=== PATIENT | female | born 1945 | race Caucasian/White ===

== ENCOUNTER 2020-01-25 11:58 | Inpatient (IN) | payer MEDICARE, BC ==
[2020-01-25] VITALS (7 sets, daily range): BP systolic 132–166; BP diastolic 70–85
[~2020-01-25] VITALS: Ht 172.7 cm; Wt 73.0 kg
[~2020-01-25 11:58] MED LIST: ASPI-612 PO; DULO-31 PO; LEVO88TA2 PO; MULT-687 PO; ZOLP12.543 PO
[2020-01-25] MEDS ORDERED: cefazolin/dext.iso 2gm/100ml 100 ML IV ONE (12:17)
[2020-01-25] MEDS ORDERED: vancomycin 1,500 MG in NS 300ml IV soln IV ONE (12:17)
[2020-01-25] MEDS ORDERED: famotidine 20mg tablet PO ONE (12:17)
[2020-01-25] MEDS ORDERED: ringers solution, lacted 1,000 ML IV SCH ×2 (12:17→15:14)
[2020-01-25] MEDS ORDERED: ceFAZolin 2gm in dextrose, iso 50 ML IV ONE (12:20)
[2020-01-25] MEDS ORDERED: ceFAZolin 2gm in dextrose, iso 100 ML IV ONE (12:20)
[2020-01-25] MEDS ORDERED: TURMERIC (13:00)
[2020-01-25] MEDS ORDERED: meperidine/PF 25mg/ml syringe IV PRN ×3 (15:15)
[2020-01-25] MEDS ORDERED: morphine 4 MG/ML inj SYRINge IV PRN (15:15)
[2020-01-25] MEDS ORDERED: proCHLORperazine 10 MG/2 ml inj IV PRN (15:15)
[2020-01-25] MEDS ORDERED: ondansetron/PF 4mg/2ml inj IV PRN (15:15)
[2020-01-25] MEDS ORDERED: morphine 2 MG/ML inj. syringe IV PRN (15:15)
[2020-01-25] MEDS ORDERED: cloNIDine hcl/PF 100mcg/ml inj ONE (16:06)
[2020-01-25] MEDS ORDERED: fentaNYL/PF 50MCG/1 ML 2ML syringe ONE (16:08)
[2020-01-25] MEDS ORDERED: MIDAZolam 5mg/5ml vial ONE (16:08)
[2020-01-25] MEDS ORDERED: ROPIVAcaine 0.5% (5mg/ml) 30ml vial ONE (16:10)
[2020-01-25] MEDS ORDERED: bacitracin 15gm ointment TP ONE (16:11)
[2020-01-25] MEDS ORDERED: BUPIVAcaine/PF 2.5 mg/ml (0.25%) 30ml vial ONE (16:11)
[2020-01-25] MEDS ORDERED: LIDOcaine 1%/PF 5ML 10 MG/ML VIAL ONE (16:12)
[2020-01-25] MEDS ORDERED: sevoflurane 250ml liquid IH ONE (16:12)
[2020-01-25] MEDS ORDERED: BUPIVAcaine/PF 7.5mg/ml (0.75%) 10ml vial ONE (16:24)
[2020-01-25] MEDS ORDERED: propofol inj 20 ML IV ONE (16:24)
[2020-01-25] MEDS ORDERED: dexamethasone sod phosphate 4mg/ml inj. ONE (16:38)
--- NOTE | 2020-01-25 16:38 | NUR ---
Received from OR via , accompanied by Anesthesiologist DR NELSON and report given by Anesthesiolgist. AWAKENS TO VOICE. VITALS STABLE. DRESSING/SPLINT DI. WALKING BOOT ON. MANUELITO PAIN.
[2020-01-25] MEDS ORDERED: ondansetron/PF 4mg/2ml inj ONE (16:56)
--- NOTE | 2020-01-25 19:02 | NUR ---
AWAKE AND ORIENTED. VITALS STABLE. DRESSING DI. MANUELITO PAIN. HOME WITH HER DAUGHTER AT THIS TIME.
== END 2020-01-25 19:02 | disposition home or self-care (01) | DRG 469 ==
LOC: PAS IN 11:58 → EDSTATUS 15:00
PROVIDERS: ADMIT Podiatrist Foot & Ankle Surgery; ATTEND Podiatrist Foot & Ankle Surgery
PROC: 0SPG0JZ Removal of Synthetic Substitute from Left Ankle Joint, Open Approach (ICD-10-PCS; 2020-01-25)
PROC: 3E0T3BZ Introduction of Anesthetic Agent into Peripheral Nerves and Plexi, Percutaneous Approach (ICD-10-PCS; 2020-01-25)
PROC: 0SRG0JZ Replacement of Left Ankle Joint with Synthetic Substitute, Open Approach (ICD-10-PCS; principal; 2020-01-25 16:12)
DX: T84.89XA Other specified complication of internal orthopedic prosthetic devices, implants and grafts, initial encounter (principal); M19.072 Primary osteoarthritis, left ankle and foot
CPT/HCPCS: 73600; 76000; 82948; J0735; J1100; J2250; J2405; J2704; J2795; J3010; J3370; J3490; J7040; J7120

== ENCOUNTER 2022-01-15 06:35 | Day surgery (SDC) | payer MEDICARE, BC ==
[~2022-01-15] VITALS: Ht 172.7 cm; Wt 82.5 kg
[~2022-01-15 06:35] MED LIST changes: +TURMERIC
[2022-01-15 06:45] VITALS: BP 135/79
[2022-01-15] MEDS ORDERED: normal saline 1000ml 1,000 ML IV PRN (07:00)
[2022-01-15] MEDS ORDERED: LOP12.5T PO (07:09)
[2022-01-15] MEDS ORDERED: DULO-31 PO (07:09)
[2022-01-15] MEDS ORDERED: ASCO-139 PO (07:09)
[2022-01-15] MEDS ORDERED: VITA-268 PO (07:09)
[2022-01-15] MEDS ORDERED: ACET-1025 PO (07:09)
[2022-01-15] MEDS ORDERED: CHOL400T57 PO (07:09)
[2022-01-15] MEDS ORDERED: VITA-134 PO (07:09)
[2022-01-15] MEDS ORDERED: OMEG1CAP13 PO (07:09)
[2022-01-15] MEDS ORDERED: CYAN50009 PO (07:09)
[2022-01-15] MEDS ORDERED: LIDO30CR TOP (07:09)
[2022-01-15] MEDS ORDERED: ZOLP12.543 PO (07:09)
[2022-01-15 07:55] LABS: BASOPHILS % (AUTO) 0.8 % (0-1); EOSINOPHILS # (AUTO) 0.1 X10'3 (0-0.9); EOSINOPHILS % (AUTO) 2.5 % (0-6); HEMATOCRIT 32.4 % (35.0-45.0); HEMOGLOBIN 10.9 g/dl (12.0-16.0); LYMPHOCYTES % (AUTO) 23.9 % (21-51); MEAN CORPUSCULAR HEMOGLOBIN 33.3 PG (27.0-31.0); MEAN CORPUSCULAR HGB CONC 33.7 g/dL (33.0-36.5); MEAN PLATELET VOLUME 6.7 FL (7.4-10.4); MONOCYTES # (AUTO) 0.4 X10'3 (0-0.9); MONOCYTES % (AUTO) 9.1 % (2-12); NEUTROPHILS # (AUTO) 2.6 X10'3 (1.8-7.7); NEUTROPHILS % (AUTO) 63.7 % (42-75); PLATELET COUNT 195 X10'3 (140-440); RED BLOOD COUNT 3.27 X10'6 (4.20-5.60); RED CELL DISTRIBUTION WIDTH 13.7 % (11.5-14.5); WHITE BLOOD COUNT 4.1 X10'3 (4.5-11.0)
[2022-01-15] MEDS ORDERED: DESMOPRESSIN IV ONE (08:40)
[2022-01-15] MEDS ORDERED: NORMAL SALINE IV ONE (08:40)
[2022-01-15 09:25] LABS: ALANINE AMINOTRANSFERASE 18 U/L (12-78); ALBUMIN/GLOBULIN RATIO 0.9 (1.1-1.5); ALKALINE PHOSPHATASE 87 IU/L (46-116); ANION GAP 8 (8-16); ASPARTATE AMINO TRANSFERASE 39 U/L (10-37); BILIRUBIN,TOTAL 0.4 MG/DL (0.1-1.0); BLOOD UREA NITROGEN 28 MG/DL (7-18); BUN/CREATININE RATIO 14.9 (6.6-38.0); CALCIUM 8.3 MG/DL (8.5-10.1); CHLORIDE 107 MMOL/L (99-107); CREATININE 1.88 MG/DL (0.40-0.90); GLUCOSE 84 MG/DL (70-104); POTASSIUM 5.6 MMOL/L (3.5-5.1); SODIUM 140 MMOL/L (135-145); TOTAL CARBON DIOXIDE 25.2 MMOL/L (24-32); TOTAL PROTEIN 6.4 G/DL (6.4-8.2); eGFR 26 ML/MIN
[2022-01-15] MEDS ORDERED: LIDOcaine 1%/PF 5ML 10 MG/ML VIAL ONE (09:26)
[2022-01-15] MEDS ORDERED: fentaNYL/PF 50MCG/1 ML 2ML syringe ONE (09:29)
[2022-01-15] MEDS ORDERED: midazolam 1 mg/ML 2ml injection ONE (09:29)
[2022-01-15 09:45] VITALS: BP 157/86
[2022-01-15 09:57] VITALS: BP 181/79
[2022-01-15 10:05] VITALS: BP 162/80
--- NOTE | 2022-01-15 10:05 | NUR ---
Patient returned from procedure. No procedure done due to elevated CR & GFR. Dr. Phillips to come speak with the patient and then the patient can be discharged.
== END 2022-01-15 10:55 | disposition home or self-care (01) ==
LOC: SSTAY O 06:35
PROVIDERS: ATTEND Radiology Vascular & Interventional Radiology
DX: N28.89 Other specified disorders of kidney and ureter (principal); Q60.0 Renal agenesis, unilateral; Z79.899 Other long term (current) drug therapy; Z98.890 Other specified postprocedural states
CPT/HCPCS: 36415; 50200; 77012; 80053; 85025; J2250; J3010; J3490; J7030; 10160; 74150; A4615

== ENCOUNTER 2022-08-18 08:41 | Day surgery (SDC) | payer MEDICARE, BC ==
[~2022-08-18] VITALS: Ht 172.7 cm; Wt 84.0 kg
[2022-08-18] VITALS (14 sets, daily range): BP systolic 116–144; BP diastolic 57–83
[~2022-08-18 08:41] MED LIST changes: +ACET-1025 PO; +ASCO-139 PO; -ASPI-612 PO; +CHOL400T57 PO; +CYAN50009 PO; +LIDO30CR TOP; +LOP12.5T PO; +OMEG-5 PO; +VITA-268 PO; +VITA-288 PO
[2022-08-18] MEDS ORDERED: normal saline 1000ml 1,000 ML IV SCH (09:25)
[2022-08-18 09:30] LABS: BASOPHILS % (AUTO) 1.3 % (0-1); EOSINOPHILS # (AUTO) 0.2 X10'3 (0-0.9); EOSINOPHILS % (AUTO) 4.5 % (0-6); HEMATOCRIT 28.9 % (35.0-45.0); HEMOGLOBIN 9.5 g/dl (12.0-16.0); LYMPHOCYTES # (AUTO) 0.8 X10'3 (1.1-4.8); MEAN CORPUSCULAR HEMOGLOBIN 31.2 PG (27.0-31.0); MEAN CORPUSCULAR HGB CONC 32.8 g/dL (33.0-36.5); MEAN CORPUSCULAR VOLUME 95.2 FL (78-98); MONOCYTES # (AUTO) 0.5 X10'3 (0-0.9); MONOCYTES % (AUTO) 13.4 % (2-12); NEUTROPHILS # (AUTO) 2.3 X10'3 (1.8-7.7); NEUTROPHILS % (AUTO) 59.8 % (42-75); PLATELET COUNT 196 X10'3 (140-440); RED BLOOD COUNT 3.03 X10'6 (4.20-5.60); RED CELL DISTRIBUTION WIDTH 17.2 % (11.5-14.5); WHITE BLOOD COUNT 3.8 X10'3 (4.5-11.0)
[2022-08-18] MEDS ORDERED: AMLO10TA48 PO (09:48)
[2022-08-18] MEDS ORDERED: HYDR-4070 PO (09:48)
[2022-08-18] MEDS ORDERED: PROC-8 PO (09:54)
[2022-08-18] MEDS ORDERED: CYCL50CA3 PO (09:54)
[2022-08-18] MEDS ORDERED: ONDA8TAB13 PO (09:54)
[2022-08-18] MEDS ORDERED: OLAN5TAB5 PO (09:54)
[2022-08-18 10:53] LABS: ANION GAP 5 (8-16); BLOOD UREA NITROGEN 16 MG/DL (7-18); BUN/CREATININE RATIO 3.8 (6.6-38.0); CALCIUM 8.3 MG/DL (8.5-10.1); CHLORIDE 98 MMOL/L (99-107); GLUCOSE 85 MG/DL (70-104); SODIUM 135 MMOL/L (135-145); TOTAL CARBON DIOXIDE 31.9 MMOL/L (24-32); eGFR 10 ML/MIN
[2022-08-18] MEDS ORDERED: LIDOcaine 1% 30ml preserv. free vial ONE (10:59)
[2022-08-18] MEDS ORDERED: fentaNYL/PF 50MCG/1 ML 2ML syringe ONE (11:01)
[2022-08-18] MEDS ORDERED: midazolam 1 mg/ML 2ml injection ONE (11:01)
[2022-08-18] MEDS ORDERED: desmopressin inj. 25 MCG in normal saline 100ml IV soln 100 ML IV ONE (11:20)
[2022-08-18] MEDS ORDERED: gelatin sponge, absorbable (Gelfoam 12-7MM) sponge TP ONE (12:04)
[2022-08-18] MEDS ORDERED: HYDROcodone/acetaminophen 5mg/325mg tablet PO PRN (12:10)
== END 2022-08-18 15:30 | disposition home or self-care (01) ==
LOC: SSTAY O 08:41
PROVIDERS: ATTEND Radiology Vascular & Interventional Radiology
DX: N28.89 Other specified disorders of kidney and ureter (principal); C56.9 Malignant neoplasm of unspecified ovary; Z88.1 Allergy status to other antibiotic agents
CPT/HCPCS: 36415; 50200; 77012; 80048; 85025; 85610; J2250; J3010; J3490; J7030; 32408; 88305; 99152; 99153; A4615

== ENCOUNTER 2022-09-22 08:36 | Day surgery (SDC) | payer MEDICARE, BC ==
[2022-09-22] VITALS (13 sets, daily range): BP systolic 102–148; BP diastolic 51–86
[~2022-09-22] VITALS: Ht 172.7 cm; Wt 81.6 kg
[~2022-09-22 08:36] MED LIST changes: +AMLO10TA48 PO; -ASCO-139 PO; -CHOL400T57 PO; -CYAN50009 PO; +CYCL50CA3 PO; -DULO-31 PO; +HYDR-4070 PO; -MULT-687 PO; +OLAN5TAB5 PO; -OMEG-5 PO; +ONDA8TAB13 PO; +PROC-8 PO; -TURMERIC; -VITA-268 PO; -VITA-288 PO
[2022-09-22] MEDS ORDERED: METO-384 PO (09:12)
[2022-09-22] MEDS ORDERED: ESCI-8 PO (09:12)
[2022-09-22] MEDS ORDERED: normal saline 1000ml 1,000 ML IV PRN (09:15)
[2022-09-22 09:39] LABS: BASOPHILS % (AUTO) 1.2 % (0-1); EOSINOPHILS # (AUTO) 0.1 X10'3 (0-0.9); EOSINOPHILS % (AUTO) 3.3 % (0-6); HEMOGLOBIN 9.8 g/dl (12.0-16.0); LYMPHOCYTES # (AUTO) 0.7 X10'3 (1.1-4.8); LYMPHOCYTES % (AUTO) 20.8 % (21-51); MEAN CORPUSCULAR HEMOGLOBIN 31.8 PG (27.0-31.0); MEAN CORPUSCULAR HGB CONC 32.7 g/dL (33.0-36.5); MEAN PLATELET VOLUME 6.3 FL (7.4-10.4); MONOCYTES # (AUTO) 0.4 X10'3 (0-0.9); MONOCYTES % (AUTO) 12.4 % (2-12); NEUTROPHILS # (AUTO) 2.1 X10'3 (1.8-7.7); NEUTROPHILS % (AUTO) 62.3 % (42-75); PLATELET COUNT 166 X10'3 (140-440); RED BLOOD COUNT 3.09 X10'6 (4.20-5.60); RED CELL DISTRIBUTION WIDTH 16.8 % (11.5-14.5); WHITE BLOOD COUNT 3.4 X10'3 (4.5-11.0)
[2022-09-22 09:47] LABS: ANION GAP 2 (8-16); BLOOD UREA NITROGEN 13 MG/DL (7-18); BUN/CREATININE RATIO 3.4 (10.0-20.0); CALCIUM 8.4 MG/DL (8.5-10.1); CHLORIDE 100 MMOL/L (99-107); CREATININE 3.88 MG/DL (0.40-0.90); GLUCOSE 87 MG/DL (70-104); POTASSIUM 4.6 MMOL/L (3.5-5.1); SODIUM 138 MMOL/L (135-145); TOTAL CARBON DIOXIDE 35.7 MMOL/L (24-32); eGFR 11 ML/MIN
[2022-09-22] MEDS ORDERED: fentaNYL/PF 50MCG/1 ML 2ML syringe ONE (11:18)
[2022-09-22] MEDS ORDERED: midazolam 1 mg/ML 2ml injection ONE (11:18)
[2022-09-22] MEDS ORDERED: normal saline 1000ml 1,000 ML IV SCH (11:25)
[2022-09-22] MEDS ORDERED: DESMOPRESSIN IV ONE ×2 (11:45→11:49)
[2022-09-22] MEDS ORDERED: NORMAL SALINE IV ONE ×2 (11:45→11:49)
== END 2022-09-22 15:55 | disposition home or self-care (01) ==
LOC: SSTAY O 08:36
PROVIDERS: ATTEND Radiology Diagnostic Radiology
DX: C56.9 Malignant neoplasm of unspecified ovary (principal); C79.02 Secondary malignant neoplasm of left kidney and renal pelvis; I10 Essential (primary) hypertension; Z79.899 Other long term (current) drug therapy; Z91.040 Latex allergy status; Z87.891 Personal history of nicotine dependence; Z86.73 Personal history of transient ischemic attack (TIA), and cerebral infarction without residual deficits; Z80.3 Family history of malignant neoplasm of breast; Z82.49 Family history of ischemic heart disease and other diseases of the circulatory system
CPT/HCPCS: 36415; 50200; 76942; 80048; 85025; 85610; 99152; 99153; J2250; J2597; J3010; J3490; J7030; 88305; 88341; 88342; A4615

== ENCOUNTER 2023-12-06 16:28 | Outpatient (CLI) | payer MEDICARE, BC ==
[~2023-12-06 16:28] MED LIST changes: +AMLO-888 PO; -AMLO10TA48 PO; +ESCI-8 PO; -HYDR-4070 PO; +HYDR50TA46 PO; -LOP12.5T PO; +METO-384 PO; +ONDA-245 PO; -ONDA8TAB13 PO; -ZOLP12.543 PO; +ZOLP12.570 PO
== END 2023-12-06 23:59 | disposition home or self-care (01) ==
LOC: LAB 16:28
PROVIDERS: ATTEND Internal Medicine Critical Care Medicine
DX: N93.9 Abnormal uterine and vaginal bleeding, unspecified (principal); I12.0 Hypertensive chronic kidney disease with stage 5 chronic kidney disease or end stage renal disease; N18.6 End stage renal disease; Z85.43 Personal history of malignant neoplasm of ovary
CPT/HCPCS: 36415